=== PATIENT | male | born 1990 | race African-American/Black ===

== ENCOUNTER 2017-07-01 12:42 | Emergency (ER) | payer MEDICAID ==
--- NOTE | 2017-07-01 12:50 | EDPHY ---
H & P Time Seen by Provider: 07/01/17 12:46 HPI/ROS: CHIEF COMPLAINT: Abdominal pain and diarrhea HISTORY OF PRESENT ILLNESS: Patient works at a restaurant, [employer]; had symptoms for the past 3 days. Started with diarrhea 3 times a day but not bloody associated with lower abdominal crampy abdominal pain. Continues today and he took off work to come to the emergency department. Abdominal pain is not worse with movement but is worse with oral intake. Pain does not radiate. Symptoms moderate at this time. Has nausea and earlier today thought he was going to throw up but did not. REVIEW OF SYSTEMS: Eye: Chronic blurry vision after eye surgery in 2008 after trauma. ENT: no sore throat Cardiac: no chest pain or syncope Pulmonary: no cough or SOB Abdomen: HPI Musculoskeletal: A little bit of right-sided back pain, not new or changed. Skin: no rash Neuro: no headache Constitutional: no fever : no urinary symptoms A comprehensive 10 point review of systems is otherwise negative aside from elements mentioned in the history of present illness. PAST MEDICAL HISTORY: Eye surgery in 2009 after trauma Social history: Smoker General Appearance: Alert and conversant, cooperative. Eyes: No scleral icterus. ENT, Mouth: Dry mucous membranes. Respiratory: Normal respiratory effort, breath sounds equal, lungs are clear to auscultation. Cardiovascular: Regular rate and rhythm. Gastrointestinal: Abdomen is soft and non tender. Normal male . No McBurney 's point tenderness. Neurological: Alert, face symmetric, normal motor and sensory in extremities. Skin: Warm and dry, no rashes. Musculoskeletal: No peripheral edema. Psychiatric: Not agitated. Emergency Department course/MDM: Normal saline 1 L, labs, Zofran 4 mg IV. 1500: abdomen soft, nontender on exam, feels better. Negative Hernandez sign. No rebound or guarding. Less likely to be acute surgical process. Labs reviewed with the patient. Smoking Status: Current every day smoker Constitutional: Initial Vital Signs Temperature (C) 36.7 C 07/01/17 12:46 Heart Rate 98 07/01/17 12:46 Respiratory Rate 16 07/01/17 12:46 Blood Pressure 129/78 H 07/01/17 12:46 O2 Sat (%) 93 07/01/17 12:46 O2 Delivery Mode Room Air Allergies/Adverse Reactions: No Known Allergies Allergy (Unverified 07/01/17 12:49) Home Medications: Medication Instructions Recorded NK [No Known Home Meds] 07/01/17 Medical Decision Making Differential Diagnosis: Differential diagnosis considered for abdominal pain including but not limited to appendicitis, testicular problem, cholecystitis, pancreatitis, gastritis and urinary tract infection. - Data Points Laboratory Results: Laboratory Results 07/01/17 13:04 07/01/17 13:04 07/01/17 07/01/17 13:04 13:04 WBC 5.38 10^3/uL 10^3/uL (3.80-9.50) RBC 4.61 10^6/uL 10^6/uL (4.40-6.38) Hgb 13.4 g/dL L g/dL (13.7-17.5) Hct 40.6 % % (40.0-51.0) MCV 88.1 fL fL (81.5-99.8) MCH 29.1 pg pg (27.9-34.1) MCHC 33.0 g/dL g/dL (32.4-36.7) RDW 12.0 % % (11.5-15.2) Plt Count 233 10^3/uL 10^3/uL (150-400) MPV 10.4 fL fL (8.7-11.7) Neut % (Auto) 62.1 % % (39.3-74.2) Lymph % (Auto) 27.3 % % (15.0-45.0) [place] % (Auto) 9.1 % % (4.5-13.0) Eos % (Auto) 0.7 % % (0.6-7.6) Baso % (Auto) 0.6 % % (0.3-1.7) Nucleat RBC Rel Count 0.0 % % (0.0-0.2) Absolute Neuts (auto) 3.34 10^3/uL 10^3/uL (1.70-6.50) Absolute Lymphs (auto) 1.47 10^3/uL 10^3/uL (1.00-3.00) Absolute Monos (auto) 0.49 10^3/uL 10^3/uL (0.30-0.80) Absolute Eos (auto) 0.04 10^3/uL 10^3/uL (0.03-0.40) Absolute Basos (auto) 0.03 10^3/uL 10^3/uL (0.02-0.10) Absolute Nucleated RBC 0.00 10^3/uL 10^3/uL (0-0.01) Immature Gran % 0.2 % % (0.0-1.1) Immature Gran # 0.01 10^3/uL 10^3/uL (0.00-0.10) Sodium 139 mEq/L mEq/L (135-145) Potassium 4.0 mEq/L mEq/L (3.5-5.2) Chloride 105 mEq/L mEq/L (97-110) Carbon Dioxide 24 mEq/l mEq/l (22-31) Anion Gap 10 mEq/L mEq/L (8-16) BUN 11 mg/dL mg/dL (7-23) Creatinine 0.8 mg/dL mg/dL (0.7-1.3) Estimated GFR > 60 Glucose 96 mg/dL mg/dL (70-100) Calcium 9.0 mg/dL mg/dL (8.5-10.4) Total Bilirubin 0.6 mg/dL mg/dL (0.1-1.4) Conjugated Bilirubin 0.4 mg/dL mg/dL (0.0-0.5) Unconjugated Bilirubin 0.2 mg/dL mg/dL (0.0-1.1) AST 19 IU/L IU/L (17-59) ALT 23 IU/L IU/L (21-72) Alkaline Phosphatase 50 IU/L IU/L (38-126) Total Protein 7.1 g/dL g/dL (6.3-8.2) Albumin 4.3 g/dL g/dL (3.5-5.0) Lipase 71 IU/L IU/L (23-300) Medications Given: Discontinued Medications Sodium Chloride (Ns) 1,000 mls @ 0 mls/hr IV EDNOW ONE; Wide Open PRN Reason: Protocol Stop: 07/01/17 13:02 Last Admin: 07/01/17 13:08 Dose: 1,000 mls Sodium Chloride (Ns) 1,000 mls @ 0 mls/hr IV EDNOW ONE; Wide Open PRN Reason: Protocol Stop: 07/01/17 14:02 Last Admin: 07/01/17 14:21 Dose: 1,000 mls Ondansetron HCl (Zofran) 4 mg IVP EDNOW ONE Stop: 07/01/17 13:02 Last Admin: 07/01/17 13:08 Dose: 4 mg Departure - Departure Disposition: Home, Routine, Self-Care Clinical Impression: Dehydration Abdominal pain Qualifiers: Abdominal location: lower abdomen, unspecified Qualified Code(s): R10.30 - Lower abdominal pain, unspecified Condition: Good Instructions: Acute Abdominal Pain (ED) Additional Instructions: You need to return to the emergency department immediately if you develop worsening or severe pain, fever, vomiting or you are not completely better in 8- 12 hours. Referrals: Brooklyn Fournier MD [Medical Doctor] - As per Instructions (primary care referral) [facility] [place],. [Clinic] - As per Instructions
[2017-07-01] MEDS ORDERED: LOPERAMIDE HCL 2 MG CAP PO ONE (13:01)
[2017-07-01] MEDS ORDERED: ONDANSETRON 4 MG/2 ML VIAL IVP ONE (13:01)
[2017-07-01] MEDS ORDERED: NS 1,000 ML IV ONE ×2 (13:01→14:01)
[2017-07-01 13:11] LABS: PLATELET COUNT 233 10^3/uL (150-400)
[2017-07-01 15:26] VITALS: BP 119/64
== END 2017-07-01 15:26 | disposition home or self-care (01) ==
DX: R10.30 Lower abdominal pain, unspecified (principal); E86.0 Dehydration; E86.9 Volume depletion, unspecified; F17.200 Nicotine dependence, unspecified, uncomplicated
CPT/HCPCS: 96374; J2405

== ENCOUNTER 2017-07-02 13:30 | Emergency (ER) | payer MEDICAID ==
[2017-07-02] MEDS ORDERED: HYDROmorphONE/DILAUDID 2 MG/ML INJ IVP ONE (14:10)
[2017-07-02] MEDS ORDERED: ONDANSETRON 4 MG/2 ML VIAL IVP ONE (14:10)
[2017-07-02] MEDS ORDERED: NS 1,000 ML IV ONE ×2 (14:10→15:51)
--- NOTE | 2017-07-02 14:13 | EDPHY ---
H & P Time Seen by Provider: 07/02/17 14:00 HPI/ROS: CHIEF COMPLAINT: Abdominal pain HISTORY OF PRESENT ILLNESS: Patient was seen by myself yesterday for abdominal pain which had been present for 3 days. It was associated with diarrhea, he received IV fluids and antiemetics and felt better and was discharged. He does work at a restaurant. He presents today with increasing left-sided upper and lower quadrant abdominal pain which is worse with eating or drinking. Does not radiate. Associated with increased urination. No injury or trauma and no vomiting. No hematuria. REVIEW OF SYSTEMS: Eye: Chronic blurry vision unchanged ENT: no sore throat Cardiac: no chest pain or syncope Pulmonary: no cough or SOB Abdomen: HPI Musculoskeletal: no back pain Skin: no rash Neuro: no headache Constitutional: no fever : no urinary symptoms A comprehensive 10 point review of systems is otherwise negative aside from elements mentioned in the history of present illness. PAST MEDICAL HISTORY: Eye surgery in 2009 after trauma Social history: Tobacco smoker General Appearance: Alert and conversant, cooperative. Eyes: No scleral icterus. ENT, Mouth: Normal mucous membranes. Respiratory: Normal respiratory effort, breath sounds equal, lungs are clear to auscultation. Cardiovascular: Regular rate and rhythm. Gastrointestinal: Left upper and lower quadrant abdominal tenderness without rebound or guarding, no McBurney's point tenderness, no hernia, normal male . Neurological: Alert, face symmetric, normal motor and sensory in extremities. Skin: Warm and dry, no rashes. Musculoskeletal: No peripheral edema. Psychiatric: Not agitated. Emergency Department course/MDM: Plan for IV fluids, pain medication, CT scanning to evaluate for colonic pathology. 1422: CT scanning discussed with the patient and consented, i-STAT creatinine 0.9, ordered. 1550: Results discussed, still has pain, will try reglan/bentyl/toradol. 1720: feels better, soft nontender, pain essentially gone. He would like to go home which I think is reasonable. More likely this is due to his severe diarrheal illness from the past 3 days. Surgical process unlikely. Smoking Status: Current every day smoker Constitutional: Initial Vital Signs Temperature (C) 36.8 C 07/02/17 13:33 Heart Rate 66 07/02/17 13:33 Respiratory Rate 18 07/02/17 13:33 Blood Pressure 127/67 H 07/02/17 13:33 O2 Sat (%) 98 07/02/17 13:33 O2 Delivery Mode Room Air Allergies/Adverse Reactions: No Known Allergies Allergy (Verified 07/02/17 13:33) Home Medications: Medication Instructions Recorded NK [No Known Home Meds] 07/01/17 Medical Decision Making - Diagnostics Imaging Results: Imaging Impressions Abdomen CT 07/02/17 14:22 Impression: 1. Trace free fluid in the pelvis, with no definite acute findings. 2. Mild prominence of jejunum in the central abdomen, which could be related to peristalsis, with smooth tapering distally, without evidence of obstruction. Findings discussed with Tam Bryson M.D., on July 02, [address] negative per Amy at 15 40 Imaging: Discussed imaging studies w/ fisher scallop Radiologist Differential Diagnosis: Differential diagnosis considered for abdominal pain including but not limited to constipation, diverticulitis, intestinal perforation, renal colic, appendicitis, cholecystitis, pancreatitis, gastritis and urinary tract infection. - Data Points Laboratory Results: 07/02/17 07/02/17 14:20 14:08 POC Hgb 13.9 gm/dL gm/dL (13.7-17.5) POC Hct 41 % % (40-51) POC Sodium 144 mEq/L mEq/L (135-145) POC Potassium 3.9 mEq/L mEq/L (3.3-5.0) POC Chloride 107 mEq/L mEq/L (97-110) POC BUN 5 mg/dL L mg/dL (7-23) POC Creatinine 0.9 mg/dL mg/dL (0.7-1.3) POC Glucose 86 mg/dL mg/dL (70-100) Urine Color PALE YELLOW Urine Appearance CLEAR Urine pH 6.0 (5.0-7.5) Ur Specific [place] 1.012 (1.002-1.030) Urine Protein NEGATIVE (NEGATIVE) Urine Ketones NEGATIVE (NEGATIVE) Urine Blood NEGATIVE (NEGATIVE) Urine Nitrate NEGATIVE (NEGATIVE) Urine Bilirubin NEGATIVE (NEGATIVE) Urine Urobilinogen NEGATIVE EU EU (0.2-1.0) Ur Leukocyte Esterase NEGATIVE (NEGATIVE) Urine Glucose NEGATIVE (NEGATIVE) Medications Given: Discontinued Medications Dicyclomine HCl (Bentyl) 20 mg PO EDNOW ONE Stop: 07/02/17 15:52 Last Admin: 07/02/17 16:35 Dose: 20 mg Hydromorphone HCl (Dilaudid) 0.5 mg IVP EDNOW ONE Stop: 07/02/17 14:11 Last Admin: 07/02/17 14:38 Dose: 0.5 mg Sodium Chloride (Ns) 1,000 mls @ 0 mls/hr IV EDNOW ONE; Wide Open PRN Reason: Protocol Stop: 07/02/17 14:11 Last Admin: 07/02/17 14:37 Dose: 1,000 mls Sodium Chloride (Ns) 1,000 mls @ 0 mls/hr IV EDNOW ONE; Wide Open PRN Reason: Protocol Stop: 07/02/17 15:52 Last Admin: 07/02/17 16:36 Dose: 1,000 mls Ketorolac Tromethamine (Toradol) 15 mg IVP EDNOW ONE Stop: 07/02/17 15:52 Last Admin: 07/02/17 16:33 Dose: 15 mg Metoclopramide HCl (Reglan Injection) 10 mg IVP EDNOW ONE Stop: 07/02/17 15:52 Last Admin: 07/02/17 16:33 Dose: 10 mg Ondansetron HCl (Zofran) 4 mg IVP EDNOW ONE Stop: 07/02/17 14:11 Last Admin: 07/02/17 14:38 Dose: 4 mg Point of Care Test Results: 07/02/17 14:20 POC Sodium 144 POC Potassium 3.9 POC Chloride 107 POC BUN 5 L POC Creatinine 0.9 POC Glucose 86 Departure - Departure Disposition: Home, Routine, Self-Care Clinical Impression: Abdominal pain Qualifiers: Abdominal location: left lower quadrant Qualified Code(s): R10.32 - Left lower quadrant pain Condition: Good Instructions: Acute Abdominal Pain (DC) Referrals: Lisa Aburto MD [Medical Doctor] - 3-4 days, if not improved
[2017-07-02] MEDS ORDERED: IOPAMIDOL (ISOVUE-300) 100 ML BTL ONE (14:34)
[2017-07-02] MEDS ORDERED: METOCLOPRAMIDE 10 MG/2 ML VIAL IVP ONE (15:51)
[2017-07-02] MEDS ORDERED: DICYCLOMINE 10 MG CAP PO ONE (15:51)
[2017-07-02] MEDS ORDERED: KETOROLAC 15 MG/1 ML SDV IVP ONE (15:51)
[2017-07-02 17:30] VITALS: BP 117/50
== END 2017-07-02 17:29 | disposition home or self-care (01) ==
DX: R10.32 Left lower quadrant pain (principal); E86.9 Volume depletion, unspecified; F17.200 Nicotine dependence, unspecified, uncomplicated
CPT/HCPCS: 82947-QW; 96374; J1170; J1885; J2405; J2765; Q9967

== ENCOUNTER 2017-08-06 12:38 | Emergency (ER) | payer MEDICAID ==
--- NOTE | 2017-08-06 13:03 | EDPHY ---
H & P Stated Complaint: urinary frequency Time Seen by Provider: 08/06/17 13:03 - Personal History Current Tetanus/Diphtheria Vaccine: Yes Current Tetanus Diphtheria and Acellular Pertussis (TDAP): Yes Tetanus Vaccine Date: < 10 years - Medical/Surgical History Hx Asthma: No Hx Chronic Respiratory Disease: No Hx Diabetes: No Hx Cardiac Disease: No Hx Renal Disease: No Hx Cirrhosis: No Hx Alcoholism: No Hx HIV/AIDS: No Hx Splenectomy or Spleen Trauma: No Other PMH: eye surgery 2008 - Social History Smoking Status: Current every day smoker Constitutional: Initial Vital Signs Temperature (C) 37.1 C 08/06/17 12:44 Heart Rate 80 08/06/17 12:44 Respiratory Rate 16 08/06/17 12:44 Blood Pressure 118/75 08/06/17 12:44 O2 Sat (%) 97 08/06/17 12:44 O2 Delivery Mode Room Air Allergies/Adverse Reactions: No Known Allergies Allergy (Verified 07/02/17 13:33) Home Medications: Medication Instructions Recorded NK [No Known Home Meds] 07/01/17 Medical Decision Making ED Course/Re-evaluation: CHIEF COMPLAINT: Urinary frequency HISTORY OF PRESENT ILLNESS: 26-year-old gentleman whose developed urinary frequency which she says has worsened over the last month or so. Sometimes he goes every 5 min. He is feeling some pressure when he has bowel movements also long the prostate her anal area. He feels like he has a prostate infection although he has never had 1. Denies fevers chills. Denies any systemic illness. Denies sexual promiscuity and always uses condoms REVIEW OF SYSTEMS: A 10 point review of systems was performed and is negative with the exception of the elements mentioned in the history of present illness. PHYSICAL EXAM: HR, BP, O2 Sat, RR. Temp noted General Appearance: Alert, well hydrated, appropriate, and non-toxic appearing. Head: Atraumatic without scalp tenderness or obvious injury Eyes: Pupils equal, round, reactive to light and accommodation, EOMI, no trauma , no injection. Ears: Clear bilaterally, no perforation, normal landmarks Nose: Atraumatic, no rhinorrhea, clear. Throat: There is no erythema or exudates, no lesions, normal tonsils, mucus membranes moist. Neck: Supple, 2+ carotid upstroke, nontender, no lymphadenopathy. Respiratory: No retractions, no distress, no wheezes, and no accessory muscle use. Lungs are clear to auscultation bilaterally. Cardiovascular: Regular rate and rhythm, no murmurs, rubs, or gallops. Bilateral carotid, radial, dorsalis pedis, and posterior tibial pulses intact. Good capillary refill all extremities. Gastrointestinal: Abdomen is soft, nontender, non-distended, no masses, no rebound, no guarding, no peritoneal signs. Musculoskeletal: Normal active ROM of all extremities, atraumatic. Neurological: Alert, appropriate, and interactive. The patient has normal DTRs and non-focal cranial nerves, motor, sensory, and cerebellar exam. Skin: No rashes, good turgor, no nodules on palpation. : Prostate is normal and smooth with normal median right FA and no nodules. It is not boggy. I listed minimal tenderness. Normal rectal tone Past medical history: Noncontributory Past surgical history: None Family history: Noncontributory Social history: Single, employed, does not abuse tobacco drugs or alcohol DIFFERENTIAL DIAGNOSIS: Includes but is not limited to: STI, prostatitis, inflammatory bowel process, irritable bowel process, cystitis, pyelonephritis MEDICAL DECISION MAKING: This patient most likely has a mild prostatitis. His urine is unremarkable here. I will start him on treatment with doxycycline 100 mg twice daily. He will follow up with Urology. - Data Points Laboratory Results: 08/06/17 12:50 Urine Color YELLOW Urine Appearance CLEAR Urine pH 5.0 (5.0-7.5) Ur Specific [place] 1.019 (1.002-1.030) Urine Protein NEGATIVE (NEGATIVE) Urine Ketones NEGATIVE (NEGATIVE) Urine Blood NEGATIVE (NEGATIVE) Urine Nitrate NEGATIVE (NEGATIVE) Urine Bilirubin NEGATIVE (NEGATIVE) Urine Urobilinogen NEGATIVE EU EU (0.2-1.0) Ur Leukocyte Esterase NEGATIVE (NEGATIVE) Urine Glucose NEGATIVE (NEGATIVE) Departure - Departure Disposition: Home, Routine, Self-Care Clinical Impression: Prostatitis, acute Condition: Good Instructions: Prostatitis (ED) Additional Instructions: 1. Follow up with a urologist. You have been referred to Dr. Parmar. 2. Return to the Emergency Department for fever, worsening pain, flank pain or failure to improve within 72 hours. Referrals: NONE *PRIMARY CARE P,. [Primary Care Provider] - As per Instructions Magdaleno Parmar MD [Medical Doctor] - As per Instructions
[2017-08-06 13:25] VITALS: BP 120/80
== END 2017-08-06 13:25 | disposition home or self-care (01) ==
DX: N41.0 Acute prostatitis (principal); F17.200 Nicotine dependence, unspecified, uncomplicated

== ENCOUNTER 2017-09-25 14:46 | Emergency (ER) | payer MEDICAID ==
--- NOTE | 2017-09-25 15:21 | EDPHY ---
H & P Time Seen by Provider: 09/25/17 15:07 HPI/ROS: Chief complaint. Abdominal pain, blood in stool, chest pain HPI. Patient is a 27-year-old male presents emergency department with 1 day history of stinging mid abdominal pain that radiates through to his back. He also has retrosternal stinging type pain. No shortness of breath. His symptoms are worse with eating. He vomited 3 days ago but not since. He had some diarrhea this morning with blood in his stool. Has a remote history of alcoholism. Denies abdominal surgery. No history of peptic ulcer disease or esophageal varices. He notes increased stress. Never has had blood in his stool before. No fever ROS Constitutional. no fever/chills, no weakness Eyes. no problems with vision ENT. no sore throat, no nasal drainage Cardiovascular. Retrosternal chest pain Respiratory. no shortness of breath, no cough Abdominal. Mid abdominal pain with blood in stool . no problems urinating MS. no calf pain/swelling, no neck/back pain, no joint pain Skin. no rash Lymph. no swollen glands Neuro. no headache, no dizziness, no difficulty walking or with speech Past Medical/Surgical History: Eye surgery, remote history of alcoholism Social History: Single, daily smoker, no alcohol Smoking Status: Current every day smoker Physical Exam: General Appearance: Alert well-developed male moderate distress vital signs are stable Eyes: Pupils equal and round no pallor or injection. ENT, Mouth: Mucous membranes are moist. Respiratory: There are no retractions, lungs are clear to auscultation. Cardiovascular: Regular rate and rhythm. Gastrointestinal: Abdomen is soft with tenderness in the epigastrium and in the periumbilical area. No masses. Normal bowel sounds. Rectal exam shows brown stool Neurological: Awake and alert, sensory and motor exams grossly normal. Skin: Warm and dry, no rashes. Musculoskeletal: Neck is supple nontender. Extremities symmetrical, full range of motion. Psychiatric: Patient is oriented X 3, there is no agitation. Constitutional: Initial Vital Signs Temperature (C) 36.7 C 09/25/17 14:49 Heart Rate 66 09/25/17 14:49 Respiratory Rate 16 09/25/17 14:49 Blood Pressure 112/76 09/25/17 14:49 O2 Sat (%) 98 09/25/17 14:49 O2 Delivery Mode Room Air Allergies/Adverse Reactions: No Known Allergies Allergy (Verified 09/25/17 14:48) Home Medications: Medication Instructions Recorded Famotidine [Pepcid] 40 mg PO DAILY #10 tablet 09/25/17 Medical Decision Making - Diagnostics EKG Interpretation: EKG interpreted by me shows normal sinus rhythm with normal interval and axis. QRS is normal repolarization abnormality. Rate 54. Imaging Results: Imaging Impressions Abdomen X-Ray 09/25/17 15:38 Impression: Normal. AP Upright Abdomen, 2 Views, at 3:23 PM: There is some air and fecal material throughout portions of the colon, from the level of the cecum to rectosigmoid. There is no abnormal small bowel dilatation. There is no apparent organomegaly. There is no air-fluid level in the stomach. The osseous structures are age- appropriate. There are no abnormal calcific radiodensities. Impression: Mild constipation. Chest X-Ray 09/25/17 15:38 Impression: Normal. AP Upright Abdomen, 2 Views, at 3:23 PM: There is some air and fecal material throughout portions of the colon, from the level of the cecum to rectosigmoid. There is no abnormal small bowel dilatation. There is no apparent organomegaly. There is no air-fluid level in the stomach. The osseous structures are age- appropriate. There are no abnormal calcific radiodensities. Impression: Mild constipation. Chest x-ray and abdominal x-ray are interpreted by me is negative. No evidence for free air or air-fluid levels. Procedures: IV normal saline. Morphine and Zofran IV. GI cocktail. ED Course/Re-evaluation: Re-evaluation at 4:35 p.m.. Patient is stable. He had relief from GI cocktail. Patient and I discussed imaging and lab results. We discussed treatment plan including criteria for return importance of follow-up and further evaluation. He expresses understanding and agreement Differential Diagnosis: No evidence for GI bleeding. I also considered peptic ulcer disease, pancreatitis. I think this is likely gastritis or peptic ulcer disease - Data Points Laboratory Results: Laboratory Results 09/25/17 15:35 09/25/17 15:35 09/25/17 09/25/17 09/25/17 15:35 15:35 15:35 WBC RBC Hgb Hct MCV MCH MCHC RDW Plt Count MPV Neut % (Auto) Lymph % (Auto) [place] % (Auto) Eos % (Auto) Baso % (Auto) Nucleat RBC Rel Count Absolute Neuts (auto) Absolute Lymphs (auto) Absolute Monos (auto) Absolute Eos (auto) Absolute Basos (auto) Absolute Nucleated RBC Immature Gran % Immature Gran # PT 13.7 SEC SEC (12.0-15.0) INR 1.03 (0.83-1.16) APTT 30.9 SEC SEC (23.0-38.0) Sodium 139 mEq/L mEq/L (135-145) Potassium 3.9 mEq/L mEq/L (3.3-5.0) Chloride 113 mEq/L H mEq/L (97-110) Carbon Dioxide 22 mEq/l mEq/l (22-31) Anion Gap 4 mEq/L L mEq/L (8-16) BUN 10 mg/dL mg/dL (7-23) Creatinine 0.8 mg/dL mg/dL (0.7-1.3) Estimated GFR > 60 Glucose 84 mg/dL mg/dL (70-100) Calcium 9.2 mg/dL mg/dL (8.5-10.4) Total Bilirubin 0.6 mg/dL mg/dL (0.1-1.4) Conjugated Bilirubin 0.3 mg/dL mg/dL (0.0-0.5) Unconjugated Bilirubin 0.3 mg/dL mg/dL (0.0-1.1) AST 17 IU/L IU/L (17-59) ALT 15 IU/L L IU/L (21-72) Alkaline Phosphatase 50 IU/L IU/L (38-126) Total Protein 6.8 g/dL g/dL (6.3-8.2) Albumin 4.1 g/dL g/dL (3.5-5.0) Lipase 69 IU/L IU/L (23-300) Stool Occult Bld Scrn NEGATIVE (NEGATIVE) 09/25/17 15:35 WBC 4.19 10^3/uL 10^3/uL (3.80-9.50) RBC 4.35 10^6/uL L 10^6/uL (4.40-6.38) Hgb 12.8 g/dL L g/dL (13.7-17.5) Hct 38.4 % L % (40.0-51.0) MCV 88.3 fL fL (81.5-99.8) MCH 29.4 pg pg (27.9-34.1) MCHC 33.3 g/dL g/dL (32.4-36.7) RDW 11.7 % % (11.5-15.2) Plt Count 240 10^3/uL 10^3/uL (150-400) MPV 10.9 fL fL (8.7-11.7) Neut % (Auto) 48.8 % % (39.3-74.2) Lymph % (Auto) 37.2 % % (15.0-45.0) [place] % (Auto) 11.9 % % (4.5-13.0) Eos % (Auto) 1.2 % % (0.6-7.6) Baso % (Auto) 0.7 % % (0.3-1.7) Nucleat RBC Rel Count 0.0 % % (0.0-0.2) Absolute Neuts (auto) 2.04 10^3/uL 10^3/uL (1.70-6.50) Absolute Lymphs (auto) 1.56 10^3/uL 10^3/uL (1.00-3.00) Absolute Monos (auto) 0.50 10^3/uL 10^3/uL (0.30-0.80) Absolute Eos (auto) 0.05 10^3/uL 10^3/uL (0.03-0.40) Absolute Basos (auto) 0.03 10^3/uL 10^3/uL (0.02-0.10) Absolute Nucleated RBC 0.00 10^3/uL 10^3/uL (0-0.01) Immature Gran % 0.2 % % (0.0-1.1) Immature Gran # 0.01 10^3/uL 10^3/uL (0.00-0.10) PT INR APTT Sodium Potassium Chloride Carbon Dioxide Anion Gap BUN Creatinine Estimated GFR Glucose Calcium Total Bilirubin Conjugated Bilirubin Unconjugated Bilirubin AST ALT Alkaline Phosphatase Total Protein Albumin Lipase Stool Occult Bld Scrn Medications Given: Discontinued Medications Al Hydroxide/Mg Hydroxide (Maalox Susp) 30 ml PO ONCE ONE Stop: 09/25/17 15:40 Last Admin: 07/10/18 15:47 Dose: 30 ml Sodium Chloride (Ns) 1,000 mls @ 0 mls/hr IV EDNOW ONE; Wide Open PRN Reason: Protocol Stop: 09/25/17 15:38 Last Admin: 09/25/17 15:44 Dose: 1,000 mls Lidocaine (Lidocaine 2% Viscous) 15 ml PO ONCE ONE Stop: 09/25/17 15:40 Last Admin: 09/25/17 15:47 Dose: 15 ml Morphine Sulfate (Morphine) 6 mg IVP EDNOW ONE Stop: 09/25/17 15:38 Last Admin: 09/25/17 15:45 Dose: 6 mg Ondansetron HCl (Zofran) 4 mg IVP EDNOW ONE Stop: 09/25/17 15:38 Last Admin: 09/25/17 15:44 Dose: 4 mg Departure - Departure Disposition: Home, Routine, Self-Care Clinical Impression: Abdominal pain Qualifiers: Abdominal location: epigastric Qualified Code(s): R10.13 - Epigastric pain Condition: Good Instructions: Gastritis (ED) Additional Instructions: May use Maalox 2 tbsp at bedtime the next 3-4 days Pepcid to help heal your stomach. Avoid aspirin, alcohol, ibuprofen as this is hard on your stomach Return for worsening symptoms. Recheck in 2-3 days for continuing symptoms Referrals: NONE *PRIMARY CARE P,. [Primary Care Provider] - As per Instructions Byron Fletcher MD [[facility] Primary Care Provider] - 2-3 days, if not improved Prescriptions: Famotidine [Pepcid] 40 mg PO DAILY #10 tablet
--- NOTE | 2017-09-25 15:21 | CPEKG ---
Heart Rate: 54 RR Interval: 1111 P-R Interval: 152 QRSD Interval: 84 QT Interval: 416 QTC Interval: 395 P E[place]: 65 QRS Eckerty: 86 T Wave [place]: 61 EKG Severity - OTHERWISE NORMAL ECG - EKG Impression: SINUS ARRHYTHMIA, RATE 45-65 EKG Impression: ST ELEV, PROBABLE NORMAL EARLY REPOL PATTERN Electronically Signed By: Denis Cain 25-Sep-2017 15:44:44
[2017-09-25] MEDS ORDERED: NS 1,000 ML IV ONE (15:37)
[2017-09-25] MEDS ORDERED: ONDANSETRON 4 MG/2 ML VIAL IVP ONE (15:37)
[2017-09-25] MEDS ORDERED: MAG HYDROX/AL HYDROX/SIMETH 30 ML UDCUP PO ONE (15:39)
[2017-09-25] MEDS ORDERED: LIDOCAINE 2% VISCOUS 15 ML UDCUP PO ONE (15:39)
[2017-09-25 15:48] LABS: PLATELET COUNT 240 10^3/uL (150-400)
[2017-09-25 15:57] LABS: INR 1.03 (0.83-1.16); PROTIME(PATIENT) 13.7 SEC (12.0-15.0)
[2017-09-25 17:01] VITALS: BP 112/68
== END 2017-09-25 17:00 | disposition home or self-care (01) ==
DX: R10.13 Epigastric pain (principal); E86.9 Volume depletion, unspecified; F17.200 Nicotine dependence, unspecified, uncomplicated
CPT/HCPCS: 84484-PO; 96374; J2270; J2405

== ENCOUNTER 2017-09-28 21:54 | Emergency (ER) | payer MEDICAID ==
--- NOTE | 2017-09-28 22:20 | EDPHY ---
H & P Stated Complaint: n/v/d, abd pain, getting worse Source: Patient, Old records Exam Limitations: No limitations - Personal History Current Tetanus Diphtheria and Acellular Pertussis (TDAP): Yes Tetanus Vaccine Date: < 10 years - Medical/Surgical History Hx Asthma: No Hx Chronic Respiratory Disease: No Hx Diabetes: No Hx Cardiac Disease: No Hx Renal Disease: No Hx Cirrhosis: No Hx Alcoholism: No Hx HIV/AIDS: No Hx Splenectomy or Spleen Trauma: No Other PMH: eye surgery 2008 - Social History Smoking Status: Current every day smoker Time Seen by Provider: 09/28/17 22:19 HPI/ROS: HPI: This is a 27-year-old male who presents with Chief Complaint: n/v/d, abd pain, getting worse Location: Periumbilical Quality: Pain Duration: Several days Signs and Symptoms: no fever, + nausea, + vomiting, no hematemesis, no blood in stool, no abdominal bloating, no diarrhea, no back pain, no urinary symptoms, no testicular/groin pain, no indigestion, no chest pain, no shortness of breath Timing: Acute, intermittent episodes Severity: [id number] Context: Patient presents with complaints of several day history of periumbilical pain that is described as moderate, sharp, cramping in nature. He reports that nothing makes it better or worse. He reports that he is on been and unable to eat or keep any food down for the last 2-3 days. Patient reports that he drank heavily in his 19 is but does not drink anymore. He does not regularly use NSAIDs. 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 He was seen in this emergency room on 09/25/2017 with unremarkable laboratory studies and chest x-ray and abdominal x-ray being negative. He was started on Pepcid which she reports gives him a headache so he has not been taking it. He has Medicaid but does not have a primary care provider. Patient reports that he vomited 2 times yesterday evening but he has not vomited any today. He has no recent antibiotic use. He denies any fever, diarrhea, blood in stool, hematemesis. Modifying Factors: none Comment: ROS: see HPI Constitutional: No fever, no chills, no weight loss Eyes: No blurred vision Respiratory: No shortness of breath, no cough Cardiovascular: No chest pain, no palpitations Gastrointestinal: + nausea, + vomiting, no diarrhea, no hematemesis, no blood in stool Genitourinary: No dysuria, no blood in urine Extremities: No myalgias, no edema Neurologic: No weakness, no numbness Skin: No rashes, no petechiae Hematologic: No bruising, no bleeding MEDICAL/SURGICAL/SOCIAL HISTORY: Medical history: Generally healthy. Does not take any regular medications. Surgical history: Eye surgery 2008 Social history: Smoker. Family history noncontributory. CONSTITUTIONAL: Extremely well-appearing adult male, awake and alert, no obvious distress HEENT: Atraumatic and normocephalic, PERRL, EOMI. Nares patent; no rhinorrhea; no nasal mucosal edema. Tympanic membranes clear. Oropharynx clear, no exudate and moist pink mucosa. Airway patent. No lymphadenopathy. No meningismus. Cardiovascular: Normal S1/S2, regular rate, regular rhythm, without murmur rub or gallop. PULMONARY/CHEST: Symmetrical and nontender. Clear to auscultation bilaterally. Good air movement. No accessory muscle usage. ABDOMEN: Soft, nondistended, moderate periumbilical reproducible tenderness, no rebound, no guarding, no peritoneal signs, no masses or organomegaly. No CVAT. EXTREMITIES: 2/2 pulses, strength 5/5, no deformities, no clubbing, no cyanosis or edema. NEUROLOGICAL: no focal neuro deficits. GCS 15. SKIN: Warm and dry, no erythema. no rash. Good capillary refill. (Stephanie Abdalla) Constitutional: Initial Vital Signs Temperature (C) 36.9 C 09/28/17 21:58 Heart Rate 67 09/28/17 21:58 Respiratory Rate 18 09/28/17 21:58 Blood Pressure 118/70 09/28/17 21:58 O2 Sat (%) 96 09/28/17 21:58 O2 Delivery Mode Room Air Allergies/Adverse Reactions: No Known Allergies Allergy (Verified 09/28/17 22:00) Home Medications: Medication Instructions Recorded Famotidine [Pepcid] 40 mg PO DAILY #10 tablet 09/25/17 Pantoprazole Sodium [Protonix 40mg 40 mg PO DAILY #20 tab 09/29/17 (*)] Sucralfate [Carafate 1 GM (*)] 1 gm PO ACHS #28 tab 09/29/17 Medical Decision Making - Diagnostics Imaging Results: Imaging Impressions Abdomen CT 09/28/17 22:22 Impression: 1. Normal CT abdomen and pelvis with contrast enhancement. 2. No CT evidence of appendicitis, abscess or bowel obstruction. Findings discussed with Stephanie Abdalla PAC at 23:39 hour, 09/28/2017. ED Course/Re-evaluation: Vital signs reviewed upon arrival in stable. No systemic signs. Labs, urinalysis, IV fluids, CT abdomen and pelvis scan, IV medications, oral medications ordered Patient given GI cocktail, 1 L normal saline, IV Protonix 40 mg 2307: Labs reviewed. No signs of leukocytosis/anemia/platelet dysfunction/LENNY/ elevated LFTs/electrolyte imbalance/pancreatitis. 2337: Or notified by charge nurse that patient complaining of feeling nauseous with 1 episode of vomiting and feeling"funny" with administration of contrast for CT scan. No signs of anaphylaxis, angioedema, airway compromise. Patient medicated with IV Zofran 4 mg and IV Benadryl 25 mg. 2341: Called by radiologist who advised that CT abdomen and pelvis scan shows no acute intra-abdominal process. 0013: Reassessed patient who reports complete relief of symptoms. Abdomen is soft and nontender. Given promethazine prepack to take home as well as prescription for Protonix and Carafate. Instructed patient to stop taking famotidine due to side effect of headache. He is to establish care with primary care provider and gastroenterology to determine candidacy for EGD. Patient passed p.o. Trial prior to discharge. This patient was seen under the supervision of my secondary supervising physician. I evaluated care for this patient independently. Discussed this patient with Dr. Bhardwaj. (Stephanie Abdalla) PHYSICIAN DOCUMENTATION: The patient was evaluated and managed by the Physician Oncology Rep Specialist. My co- signature indicates that I have reviewed this chart and I agree with the findings and plan of care as documented. I am the secondary supervising physician. (Mindi Bhardwaj) Differential Diagnosis: Abdominal pain including but not limited to appendicitis, cholecystitis, gastritis and urinary tract infection. (Stephanie Abdalla) - Data Points Laboratory Results: Laboratory Results 09/28/17 22:20 09/28/17 22:20 09/28/17 09/28/17 22:20 22:20 WBC 6.36 10^3/uL 10^3/uL (3.80-9.50) RBC 4.30 10^6/uL L 10^6/uL (4.40-6.38) Hgb 12.8 g/dL L g/dL (13.7-17.5) Hct 38.4 % L % (40.0-51.0) MCV 89.3 fL fL (81.5-99.8) MCH 29.8 pg pg (27.9-34.1) MCHC 33.3 g/dL g/dL (32.4-36.7) RDW 11.8 % % (11.5-15.2) Plt Count 241 10^3/uL 10^3/uL (150-400) MPV 10.5 fL fL (8.7-11.7) Neut % (Auto) 55.0 % % (39.3-74.2) Lymph % (Auto) 31.3 % % (15.0-45.0) [place] % (Auto) 12.1 % % (4.5-13.0) Eos % (Auto) 0.8 % % (0.6-7.6) Baso % (Auto) 0.5 % % (0.3-1.7) Nucleat RBC Rel Count 0.0 % % (0.0-0.2) Absolute Neuts (auto) 3.50 10^3/uL 10^3/uL (1.70-6.50) Absolute Lymphs (auto) 1.99 10^3/uL 10^3/uL (1.00-3.00) Absolute Monos (auto) 0.77 10^3/uL 10^3/uL (0.30-0.80) Absolute Eos (auto) 0.05 10^3/uL 10^3/uL (0.03-0.40) Absolute Basos (auto) 0.03 10^3/uL 10^3/uL (0.02-0.10) Absolute Nucleated RBC 0.00 10^3/uL 10^3/uL (0-0.01) Immature Gran % 0.3 % % (0.0-1.1) Immature Gran # 0.02 10^3/uL 10^3/uL (0.00-0.10) Sodium 135 mEq/L mEq/L (135-145) Potassium 3.7 mEq/L mEq/L (3.3-5.0) Chloride 107 mEq/L mEq/L (97-110) Carbon Dioxide 24 mEq/l mEq/l (22-31) Anion Gap 4 mEq/L L mEq/L (8-16) BUN 13 mg/dL mg/dL (7-23) Creatinine 0.9 mg/dL mg/dL (0.7-1.3) Estimated GFR > 60 Glucose 86 mg/dL mg/dL (70-100) Calcium 9.1 mg/dL mg/dL (8.5-10.4) Total Bilirubin 0.6 mg/dL mg/dL (0.1-1.4) Conjugated Bilirubin 0.3 mg/dL mg/dL (0.0-0.5) Unconjugated Bilirubin 0.3 mg/dL mg/dL (0.0-1.1) AST 18 IU/L IU/L (17-59) ALT 20 IU/L L IU/L (21-72) Alkaline Phosphatase 50 IU/L IU/L (38-126) Total Protein 7.1 g/dL g/dL (6.3-8.2) Albumin 4.4 g/dL g/dL (3.5-5.0) Lipase 161 IU/L IU/L (23-300) Medications Given: Discontinued Medications Al Hydroxide/Mg Hydroxide (Maalox Susp) 30 ml PO ONCE ONE Stop: 09/28/17 22:22 Last Admin: 09/28/17 22:43 Dose: 30 ml Diphenhydramine HCl (Benadryl Injection) 25 mg IVP EDNOW ONE Stop: 09/28/17 23:35 Last Admin: 09/28/17 23:36 Dose: 25 mg Hyoscyamine Sulfate (Levsin, Hyomax-Sl) 0.25 mg PO ONCE ONE Stop: 09/28/17 22:22 Last Admin: 09/28/17 22:42 Dose: 0.25 mg Sodium Chloride (Ns) 1,000 mls @ 0 mls/hr IV EDNOW ONE; Wide Open PRN Reason: Protocol Stop: 09/28/17 22:22 Last Admin: 09/28/17 22:42 Dose: 1,000 mls Lidocaine (Lidocaine 2% Viscous) 15 ml PO ONCE ONE Stop: 09/28/17 22:22 Last Admin: 09/28/17 22:43 Dose: 15 ml Ondansetron HCl (Zofran) 4 mg IVP EDNOW ONE Stop: 09/28/17 23:35 Last Admin: 09/28/17 23:36 Dose: 4 mg Pantoprazole Sodium (Protonix) 40 mg IVP ONCE ONE Stop: 09/29/17 22:22 Last Admin: 09/28/17 22:43 Dose: 40 mg Promethazine HCl (Phenergan 25 Mg Prepack #4) 1 btl TAKEHOME EDNOW ONE Stop: 09/29/17 00:13 Last Admin: 09/29/17 00:21 Dose: 1 btl Departure - Departure Disposition: Home, Routine, Self-Care Clinical Impression: PUD (peptic ulcer disease) Gastritis Qualifiers: Gastritis type: unspecified gastritis Chronicity: acute Gastritis bleeding: without bleeding Qualified Code(s): K29.00 - Acute gastritis without bleeding Condition: Good Instructions: Peptic Ulcer (ED), Gastritis (ED), Diet for Stomach Ulcers and Gastritis (ED), Acute Abdominal Pain (ED), Upper Endoscopy (DC) Additional Instructions: Consume a minimum of 8-10 glasses of water or electrolyte fluid replacement drinks that include Gatorade, Powerade, Pedialyte. Eat a bland diet for the next 48 hours and then slowly advance as tolerated. Take promethazine 1 tab every 6 hr as needed for nausea, vomiting. Stop taking famotidine and start taking Protonix 40 mg daily. Please take Carafate 1 tablet 30 min before meals and at bedtime x1 week. Please establish care with primary care provider as well as Gastroenterology to determine candidacy for EGD. Referrals: [facility],. [Clinic] - As per Instructions Lisa Aburto MD [Medical Doctor] - As per Instructions Stand Alone Forms: Work Excuse Prescriptions: Pantoprazole Sodium [Protonix 40mg (*)] 40 mg PO DAILY #20 tab Sucralfate [Carafate 1 GM (*)] 1 gm PO ACHS #28 tab
[2017-09-28] MEDS ORDERED: NS 1,000 ML IV ONE (22:21)
[2017-09-28] MEDS ORDERED: LIDOCAINE 2% VISCOUS 15 ML UDCUP PO ONE (22:21)
[2017-09-28] MEDS ORDERED: HYOSCYAMINE SULFATE 0.125 MG TAB PO ONE (22:21)
[2017-09-28] MEDS ORDERED: MAG HYDROX/AL HYDROX/SIMETH 30 ML UDCUP PO ONE (22:21)
[2017-09-28 22:29] LABS: PLATELET COUNT 241 10^3/uL (150-400)
[2017-09-28] MEDS ORDERED: IOPAMIDOL (ISOVUE-300) 100 ML BTL ONE (22:40)
[2017-09-28] MEDS ORDERED: PANTOPRAZOLE SODIUM 40 MG VIAL ONE (22:40)
[2017-09-28] MEDS ORDERED: ONDANSETRON 4 MG/2 ML VIAL ONE (23:26)
[2017-09-28] MEDS ORDERED: ONDANSETRON 4 MG/2 ML VIAL IVP ONE (23:34)
[2017-09-28 23:55] VITALS: BP 111/63
[2017-09-29] MEDS ORDERED: PROMETHAZINE 25 MG PREPACK #4 BTL TAKEHOME ONE (00:12)
[2017-09-29] MEDS ORDERED: PANTOPRAZOLE SODIUM 40 MG VIAL IVP ONE (22:21)
== END 2017-09-29 00:25 | disposition home or self-care (01) ==
DX: K29.00 Acute gastritis without bleeding (principal); K27.9 Peptic ulcer, site unspecified, unspecified as acute or chronic, without hemorrhage or perforation; E86.9 Volume depletion, unspecified; F17.200 Nicotine dependence, unspecified, uncomplicated
CPT/HCPCS: 96374; J1200; J2405; Q9967